=== PATIENT | male | born 1975 | race Two or more races ===

== ENCOUNTER 2017-01-31 01:19 | Emergency (ER) | payer OTHER ==
[2017-01-31 01:24] VITALS: TEMP 97.5
--- NOTE | 2017-01-31 02:28 | EDPHY ---
H & P Time Seen by Provider: 01/31/17 01:43 HPI/ROS: HPI The patient presents with headache which is retro-orbital and behind his right eye which has been present for the last several hours and is associated with tearing of his eye, it is very severe. It has been constant. He has a history of cluster headaches and is visiting from out of town. He has home oxygen as this is the only treatment modality that helps him.. REVIEW OF SYSTEMS Constitutional: No fever, no chills. Eyes: No discharge. ENT: No sore throat. Cardiovascular: No chest pain, no palpitations. Respiratory: No cough, no shortness of breath. Gastrointestinal: No abdominal pain, no vomiting. Genitourinary: No hematuria. Musculoskeletal: No back pain. Skin: No rashes. Neurological: Positive for headache. PMHx: Cluster headaches Soc Hx: Visiting from [facility] PHYSICAL General Appearance: Alert, no distress Eyes: Pupils equal and round no pallor or injection ENT, Mouth: Mucous membranes moist Respiratory: There are no retractions, lungs are clear to auscultation Cardiovascular: Regular rate and rhythm Gastrointestinal: Abdomen is soft and non-tender, no masses, bowel sounds normal Neurological: A&O, moves all extremities Skin: Warm and dry, no rashes Musculoskeletal: Neck is supple non tender Extremities: symmetrical, full range of motion Psychiatric: Patient is oriented X 3, there is no agitation Source: Patient Exam Limitations: No limitations - Personal History Current Tetanus/Diphtheria Vaccine: Yes - Medical/Surgical History Hx Asthma: No Hx Chronic Respiratory Disease: No Hx Diabetes: No Hx Cardiac Disease: No Hx Renal Disease: No Hx Cirrhosis: No Hx Alcoholism: No Hx HIV/AIDS: No Hx Splenectomy or Spleen Trauma: No Other PMH: PSHx: R knee. PMHx: cluster headaches - Social History Smoking Status: Never smoked Constitutional: Initial Vital Signs Temperature (C) 36.4 C 01/31/17 01:22 Heart Rate 71 01/31/17 01:22 Respiratory Rate 16 01/31/17 01:22 Blood Pressure 136/93 H 01/31/17 01:22 O2 Sat (%) 98 01/31/17 01:22 O2 Delivery Mode Room Air O2 (L/minute) 15 Allergies/Adverse Reactions: No Known Allergies Allergy (Unverified 01/31/17 01:22) Home Medications: Medication Instructions Recorded NK [No Known Home Meds] 01/31/17 Medical Decision Making Differential Diagnosis: This is a 41-year-old male with known cluster headaches who presents with several hours of headache identical to his usual cluster headache. He is visiting from out of town, he usually requires high-flow oxygen any has this at home, however does not have it with him currently. In the emergency room, the patient was placed on a non-rebreather for about 1 hour with complete resolution in his symptoms. He felt well enough to go home and was discharged. Differential diagnoses considered include cluster headache, migraine headache, tension type headache. Departure - Departure Disposition: Home, Routine, Self-Care Clinical Impression: Cluster headache Condition: Good Instructions: Cluster Headache (ED) Referrals: NONE *PRIMARY CARE P,. [Primary Care Provider] - As per Instructions
[2017-01-31 02:34] VITALS: BP 136/90; PULSE 76; RESP 14; O2SAT 94
== END 2017-01-31 02:33 | disposition home or self-care (01) ==
DX: G44.009 Cluster headache syndrome, unspecified, not intractable (principal)

== ENCOUNTER 2017-12-14 10:12 | Emergency (ER) | payer OTHER ==
--- NOTE | 2017-12-14 10:33 | EDPHY ---
H & P Time Seen by Provider: 12/14/17 10:22 HPI/ROS: CHIEF COMPLAINT: Severe headache HISTORY OF PRESENT ILLNESS: Developed headache today which is typical of his cluster headaches in that he has pain around his right orbit and right side of his head. Symptoms severe not better worse with anything, not worse with light. This is identical to multiple episodes of previous cluster headaches that he typically gets in December once a year since 2000. He knows that oxygen high flow as well makes it better and in fact at home in [facility] he has oxygen at home to treat these when they happen. Not associated with recent head trauma or other neurologic symptoms. REVIEW OF SYSTEMS: Eye: no change in vision ENT: no sore throat or ENT symptoms Cardiac: No chest pain Pulmonary: No respiratory symptoms Abdomen: No vomiting Musculoskeletal: No neck stiffness Skin: no rash Neuro: HPI Constitutional: no fever : no urinary symptoms A comprehensive 10 point review of systems is otherwise negative aside from elements mentioned in the history of present illness. PAST MEDICAL HISTORY: Right knee surgery and cluster headaches Social history: Lives in [facility] here traveling on business General Appearance: Alert and conversant, cooperative. Eyes: No scleral icterus. Pupils equal reactive and extraocular motion intact ENT, Mouth: Normal mucous membranes. Normal pharynx. Respiratory: Normal respiratory effort, breath sounds equal, lungs are clear to auscultation. Cardiovascular: Regular rate and rhythm. Gastrointestinal: Abdomen is soft and non tender. Neurological: Alert, face symmetric, normal motor and sensory in extremities. Ambulatory, no pronator drift, normal [id number], fluent speech. Skin: Warm and dry, no rashes. Musculoskeletal: Normal range of motion of the neck. Psychiatric: Not agitated. Emergency Department course/MDM: Declined treatment except for high-flow oxygen which I think is reasonable. Unlikely to be intracranial bleed or subarachnoid hemorrhage or [employer] infection or other acute medical or surgical emergency. 1055: 2/10 headache stable for discharge wants to go which I think is reasonable. Smoking Status: Never smoked Constitutional: Initial Vital Signs Temperature (C) 36.7 C 12/14/17 10:15 Heart Rate 90 12/14/17 10:15 Respiratory Rate 18 12/14/17 10:15 Blood Pressure 134/78 H 12/14/17 10:15 O2 Sat (%) 100 12/14/17 10:15 O2 Delivery Mode Nasal Cannula O2 (L/minute) 15 Allergies/Adverse Reactions: No Known Allergies Allergy (Unverified 12/14/17 10:17) Home Medications: Medication Instructions Recorded NK [No Known Home Meds] 01/31/17 Departure - Departure Disposition: Home, Routine, Self-Care Clinical Impression: Cluster headache syndrome, not intractable Qualifiers: Headache chronicity pattern: unspecified pattern Qualified Code(s): G44.009 - Cluster headache syndrome, unspecified, not intractable Condition: Good Instructions: Cluster Headache (ED) Additional Instructions: Contact referral primary care doctor or neurologist if you're interested in having outpatient oxygen prescribed here in [place] for this condition. Referrals: Jay Jay Albrecht MD [Medical Doctor] - As per Instructions Crispin Oviedo MD [Medical Doctor] - As per Instructions
[2017-12-14 11:19] VITALS: BP 160/87
== END 2017-12-14 11:19 | disposition home or self-care (01) ==
DX: G44.009 Cluster headache syndrome, unspecified, not intractable (principal)